=== PATIENT | female | born 1955 | race Caucasian/White ===

== ENCOUNTER 2019-06-06 07:57 | Day surgery (SDC) | payer BC, SELFPAY ==
--- NOTE | 2019-06-06 08:04 | EKG12_ITS ---
Test Reason : PREOP Blood Pressure : / mmHG Vent. Rate : 071 BPM Atrial Rate : 071 BPM P-R Int : 166 ms QRS Dur : 084 ms QT Int : 376 ms P-R-T Axes : 022 -10 102 degrees QTc Int : 408 ms Normal sinus rhythm Septal infarct , age undetermined Abnormal ECG No previous ECGs available Confirmed by DELVIS AZUL, GISELLE ([id number]), pictures editor DUNCAN STEINER ([id number]) on 06/07/2019 9:56:30 AM Referred By: Dagoberto Malin Confirmed By:GISELLE EDMONDSON MD
[2019-06-06 08:20] VITALS: BP 130/81; PULSE 75; RESP 15; TEMP 36.5; O2SAT 99; BMI 31.8
[2019-06-06] MEDS: Lactated Ringers 1,000 ML 100 ML IV (08:35)
[2019-06-06] MEDS: Cefazolin 2 GM in 0.9% Normal Saline 100 ML IV (10:08)
[2019-06-06] MEDS: Bupiv/Epi 0.25% 30 ML Vial (10:37)
[2019-06-06] MEDS: Epinephrine (1 mg/ml) 1 MG/ML VIAL (10:45)
[2019-06-06 11:33] VITALS: BP 105/70; BP 130/81; PULSE 86; RESP 16; TEMP 36.4; O2SAT 95
[2019-06-06 11:45] VITALS: BP 123/71; BP 130/81; PULSE 82; RESP 16; O2SAT 97
[2019-06-06 12:00] VITALS: BP 125/66; BP 130/81; PULSE 80; RESP 16; O2SAT 97
[2019-06-06 12:13] VITALS: BP 120/71; BP 130/81; PULSE 80; RESP 16; TEMP 36.4; O2SAT 93
--- NOTE | 2019-06-06 12:59 | OP.PCM_ITS ---
Report of Operation Date of Procedure: 06/06/19 Pre-Operative Diagnosis: SAIS, AC arthrosis, possible rotator cuff tear right shoulder Post-Operative Diagnosis: same with supraspinatus tendon tear Surgery/Procedure Performed:: ASD, Yeimi procedure and rotator cuff repair right shoulder power plant engineer: Darrell Canales Type of Anesthesia:: General/Regional Anesthesiologist: Ezequiel Holly - Admit VTE Documentation VTE Present on Admission: No VTE Mechan Device Prophylaxis: SCD's VTE Pharm Prophylaxis ordered?: No Reason prophylaxis not ordered:: Procedure Not Indicated
[2019-06-06 13:18] VITALS: BP 119/76; BP 130/81; PULSE 80; RESP 18; TEMP 36.7; O2SAT 93
== END 2019-06-06 13:20 | disposition home or self-care (01) ==
LOC: SDC 07:59 → AC 08:02
PROVIDERS: Referring Provider Orthopaedic Surgery; Visit Provider Orthopaedic Surgery
PROC: (CPT 29827; principal; 2019-06-06 09:25)
DX: S46.011A Strain of muscle(s) and tendon(s) of the rotator cuff of right shoulder, initial encounter (principal); X58.XXXA Exposure to other specified factors, initial encounter; M75.41 Impingement syndrome of right shoulder; M19.011 Primary osteoarthritis, right shoulder; R53.1 Weakness; E66.3 Overweight; Z68.34 Body mass index [BMI] 34.0-34.9, adult; F41.9 Anxiety disorder, unspecified
CPT/HCPCS: 29824; 29827; 64415; 93005; J7120; J2405